=== PATIENT | male | born 1990 | race Caucasian/White ===

== ENCOUNTER 2020-09-16 11:17 | Outpatient (CLI) | payer MEDICAID | END 2020-09-16 23:59 | disposition critical access hospital (66) | LOC: EMS 11:17 | PROVIDERS: ATTEND Surgery | DX: T22.031A Burn of unspecified degree of right upper arm, initial encounter (principal); T14.8XXA Other injury of unspecified body region, initial encounter; X08.8XXA Exposure to other specified smoke, fire and flames, initial encounter; Y93.89 Activity, other specified; Y35.93XA Legal intervention, means unspecified, suspect injured, initial encounter; Y92.89 Other specified places as the place of occurrence of the external cause | CPT/HCPCS: A0425; A0429; A0999 ==

== ENCOUNTER 2020-09-16 11:37 | Emergency (ER) | payer MEDICAID ==
[2020-09-16 11:51] VITALS: BP 125/89
[2020-09-16] MEDS ORDERED: IBUPROFEN 600 MG TABLET PO STA (12:11)
[2020-09-16] MEDS ORDERED: BACITRACIN ZINC OINT 1 PACKET TOP STA (12:11)
[2020-09-16] MEDS ORDERED: TETANUS/DIPHTHERIA/PERTUSSIS 0.5 ML SYRINGE IM ONE (12:12)
--- NOTE | 2020-09-16 12:15 | ED Physician Documentation ---
History of Present Illness - Stated complaint Stated Complaint: BURN - Chief complaint Chief Complaint: Burn - History obtained from History obtained from: Patient, Police - Additonal information Additional information: 30-year-old man brought in by police under arrest after being apprehended from underneath the car where he scraped himself and burned his right finger and posterior arm on a muffler. Patient endorsing right shoulder pain and diffuse body pain from multiple abrasions. History limited by patient uncooperative. Review of Systems Unable to obtain: Uncooperative PD PAST MEDICAL HISTORY - Present Medications Home Medications: Ambulatory Orders Medication Instructions Recorded Confirmed Bacitracin Zinc/Polymyxin B 14.17 gm TP BID 14 Days #1 09/16/20 [Bacitracin-Polymyxin Ointment] oint...g. - Allergies Allergies/Adverse Reactions: Allergies Allergy/AdvReac Type Severity Reaction Status Date / Time No Known Drug Allergies Allergy Verified 09/16/20 11:51 PD ED PE NORMAL - Vitals Vital signs reviewed: Yes - General General: Alert and oriented X 3 - HEENT HEENT: Atraumatic, PERRL, EOMI, Moist mucous membranes, Pharynx benign, Dentition benign - Neck Neck: Supple, no meningeal sign - Cardiac Cardiac: RRR - Respiratory Respiratory: No respiratory distress, Clear bilaterally - Abdomen Abdomen: Non tender, Non distended - Male Male : Deferred - Rectal Rectal: Deferred - Back Back: No spinal TTP - Derm Derm: Normal color, Warm and dry, Other (Scattered abrasions to right trunk, right upper extremity, right lower extremity. Superficial partial-thickness burn to posterior right arm and radial aspect of right first finger. Estimated <BSA 2%) - Extremities Extremities: No deformity - Neuro Neuro: Alert and oriented X 3 - Psych Psych: Normal mood, Normal affect Results - Vitals Vitals: Vital Signs - 24 hr 09/16/20 11:46 Temperature 36.1 C L Heart Rate 125 H Respiratory 20 Rate Blood Pressure 125/89 H O2 Saturation 100 Oxygen O2 Source Room air - EKG (time done) 1158 Rate: Rate (enter#) (114) Rhythm: Sinus tachycardia [place]: Normal Intervals: Normal PA QRS: Normal PD MEDICAL DECISION MAKING - ED course ED course: 30-year-old man with right shoulder pain, multiple abrasions, olivera to right first finger and right posterior arm presents for medical evaluation prior to going to intermediate. tender with ROM of R shoulder. no palpable deformity. Will obtain x-rays, treat with tetanus and ibuprofen and reassess. X-rays without visible deformity. Pain improved status post ibuprofen. Dressings placed and olivera dressed with bacitracin. Report given to the intermediate to change dressings bid. Patient will f/u with [employer] [facility] at intermediate. Departure - Departure Disposition: Home, Self Care Clinical Impression: Shoulder pain, Multiple abrasions, Superficial partial thickness burn of digit of hand, Superficial partial thickness burn of upper extremity Condition: Good Instructions: ED Abrasion, ED Burn D 2nd Prescriptions: Bacitracin Zinc/Polymyxin B [Bacitracin-Polymyxin Ointment] 14.17 gm TP BID 14 Days #1 oint...g. Comments: You were seen in the emergency department for superficial partial-thickness olivera of your arm and finger. You also have abrasions that you should keep clean to make sure they heal. Return to the ED if you have any signs of infection including worsening redness, streaking redness, swelling or pus. Make sure you apply bacitracin twice daily to your olivera and scrapes until they heal (at least 1-2 weeks). Discharge Date/Time: 09/16/20 13:09
--- NOTE | 2020-09-16 12:35 | XRAY Report ---
PROCEDURE: Shoulder 2 View RT INDICATIONS: shoulder pain TECHNIQUE: 2 views of the shoulder were acquired. COMPARISON: None. FINDINGS: Bones: No fractures or dislocations. No suspicious bony lesions. Visualized ribs appear intact. Soft tissues: No suspicious soft tissue calcifications. IMPRESSION: No evidence acute bony abnormality of the right shoulder. Reviewed by: Adams Saez MD on 09/16/2020 12:34 PM PST Approved by: Adams Saez MD on 09/16/2020 12:34 PM [facility] Station ID: [id number]
== END 2020-09-16 13:09 | disposition home or self-care (01) ==
LOC: ED 11:37
DX: T22.20XA Burn of second degree of shoulder and upper limb, except wrist and hand, unspecified site, initial encounter (principal); T23.221A Burn of second degree of single right finger (nail) except thumb, initial encounter; Y35.833A Legal intervention involving a conducted energy device, suspect injured, initial encounter; M25.511 Pain in right shoulder; Z23 Encounter for immunization
CPT/HCPCS: 16020; 73030; 90471; 90715; 93005; 99281; 99284; A9270